=== PATIENT | male | born 1945 | race American Indian/Alaskan Native ===

== ENCOUNTER 2016-07-18 14:35 | Emergency (ER) | payer MEDICARE, OTHER ==
[2016-07-18 15:15] LABS: CHLORIDE,CL 108 mEq/L (98-106); SODIUM,NA 144 mEq/L (136-145)
[2016-07-18 15:21] VITALS: BP 126/66
--- NOTE | 2016-07-18 15:31 | EDM.PDOC ---
ED HPI GENERAL MEDICAL PROBLEM - General Chief Complaint: General Stated Complaint: HEART PALPITATIONS Time Seen by Provider: 07/18/16 14:36 Source of Information: Reports: Patient, Family (DAUGHTER) History Limitations: Reports: No Limitations - History of Present Illness INITIAL COMMENTS - FREE TEXT/NARRATIVE: JOSE ALFREDO IS A 70 YO MALE WHO PRESENTS TO THE ER WITH CONCERNS OF PALPITATIONS AND MILD CHEST DISCOMFORT. STATES HE HAS BEEN DEALING WITH IT FOR AWHILE BUT THE LAST FEW DAYS IT SEEMS TO BE WORSE. ADMITS HE DOES SUFFER FROM SOME ANXIETY WELL AND THINKS THIS MAY BE THE CAUSE. STATES WHEN HE GETS THE PALPITATIONS HE GETS SHORT OF BREATH WELL. HAS A HISTORY OF [place] AND TAKES PLAVIX AND METOPROLOL DAILY. Duration: Waxing/Waning Location: Reports: Chest Improves with: Reports: None Worsens with: Reports: None Associated Symptoms: Reports: Chest Pain, Shortness of Breath. Denies: Confusion, Cough, cough w sputum, Fever/Chills, Headaches, Loss of Appetite, Nausea/Vomiting, Syncope, Weakness - Related Data Allergies Allergy/AdvReac Type Severity Reaction Status Date / Time pineapple [Pineapple] Allergy Swollen Verified 07/18/16 14:57 Tongue Home Meds: Home Meds Metoprolol Tartrate [Metoprolol Tartrate] 12.5 mg PO BID 12/24/14 [History] Clopidogrel Bisulfate [Clopidogrel] 75 mg PO DAILY 08/05/15 [History] Past Medical History HEENT History: Reports: Impaired Vision, Other (See Below) Other HEENT History: Glasses Cardiovascular History: Reports: CAD, Hypertension, NM, Stents Respiratory History: Reports: None Gastrointestinal History: Reports: GERD Genitourinary History: Reports: None Musculoskeletal History: Reports: None Neurological History: Reports: None Psychiatric History: Reports: None Endocrine/Metabolic History: Reports: Other (See Below) Other Endocrine/Metabolic History: hypoglycemic Hematologic History: Reports: None Immunologic History: Reports: None Oncologic (Cancer) History: Reports: None Dermatologic History: Reports: Urticaria, Other (See Below) Other Dermatologic History: rosacea - Infectious Disease History Infectious Disease History: Reports: None - Past Surgical History Head Surgeries/Procedures: Reports: None Social & Family History - Family History Family Medical History: Noncontributory - Tobacco Use Smoking Status *Q: Former Smoker Years of Tobacco use: 30 Used Tobacco, but Quit: Yes Month Tobacco Last Used: YEARS AGO Second Hand Smoke Exposure: No - Caffeine Use Caffeine Use: Reports: Coffee - Alcohol Use Days Per Week of Alcohol Use: 0 - Recreational Drug Use Recreational Drug Use: No Drug Use in Last 12 Months: No Recreational Drug Type: Reports: Marijuana/Hashish - Living Situation & Occupation Living situation: Reports: with Family Occupation: Employed ED ROS GENERAL - Review of Systems Review Of Systems: See Below Constitutional: Denies: Fever, Chills, Weakness, Decreased Appetite HEENT: Reports: No Symptoms Respiratory: Reports: Shortness of Breath. Denies: Wheezing, Cough, Sputum Cardiovascular: Reports: Chest Pain, Blood Pressure Problem, Palpitations. Denies: Edema, Lightheadedness, Orthopnea, Syncope GI/Abdominal: Reports: No Symptoms. Denies: Bloody Stool, Constipation, Diarrhea, Nausea, Stool Incontinence, Vomiting : Reports: Other (NOCTURIA) Musculoskeletal: Reports: No Symptoms Skin: Reports: No Symptoms Neurological: Reports: No Symptoms ED EXAM, GENERAL - Physical Exam Exam: See Below Exam Limited By: No Limitations General Appearance: Alert, No Apparent Distress Ears: Normal External Exam, Normal Canal, Normal TMs Nose: Normal Inspection, Normal Mucosa, No Blood Throat/Mouth: Normal Inspection, Normal Lips, Normal Teeth, Normal Oropharynx, Normal Voice, No Airway Compromise Head: Atraumatic, Normocephalic Neck: Normal Inspection, Supple, Non-Tender Respiratory/Chest: No Respiratory Distress, Lungs Clear, Normal Breath Sounds, No Accessory Muscle Use, Chest Non-Tender Cardiovascular: Normal Peripheral Pulses, Regular Rate, Rhythm, No Edema, No Murmur GI/Abdominal: Normal Bowel Sounds, Soft, Non-Tender, No Organomegaly, No Distention, No Mass Extremities: Normal Inspection, Non-Tender, Normal Capillary Refill Neurological: Alert, Oriented, Normal Cognition, No Motor/Sensory Deficits Psychiatric: Normal Affect, Normal Mood Skin Exam: Warm, Dry, Intact, Normal Color, No Rash EKG INTERPRETATION EKG Date: 07/18/16 Rhythm: NSR Course - Vital Signs Last Recorded V/S: Last Vital Signs Temp 98.2 F 07/18/16 14:40 Pulse 65 07/18/16 15:19 Resp 16 07/18/16 15:19 BP 126/66 07/18/16 15:19 Pulse Ox 98 07/18/16 15:19 - Orders/Labs/Meds Labs: Laboratory Tests 07/18/16 07/18/16 07/18/16 Range/Units 14:53 14:53 14:53 WBC 5.1 (5.0-10.0) 10^3/uL RBC 4.34 L (4.50-6.00) 10^6/uL Hgb 12.9 L (14.0-18.0) g/dL Hct 40.1 (40.0-54.0) % MCV 92.4 (82.0-94.0) fL MCH 29.7 (27.0-32.0) pg MCHC 32.2 L (33.0-38.0) g/dL RDW Coeff of Lesia 13.3 (11.0-15.0) % Plt Count 229 (150-400) 10^3/uL Neut % (Auto) 56.3 (35-85) % Lymph % (Auto) 27.0 (10-55) % [place] % (Auto) 10.4 (0-16) % Eos % (Auto) 5.1 H (0-5) % Baso % (Auto) 1.2 (0-3) % Neut # (Auto) 2.86 (1.80-7.00) 10^3/uL Lymph # (Auto) 1.37 (1.00-4.80) 10^3/uL [place] # (Auto) 0.53 (0.00-0.80) 10^3/uL Eos # (Auto) 0.26 (0.00-0.45) 10^3/uL Baso # (Auto) 0.06 10^3/uL PT 11.0 (9.7-12.3) SEC INR 1.02 (0.92-1.18) APTT 27.7 (24.5-30.9) SEC D-Dimer, Quantitative 0.48 (0.00-0.50) Sodium 144 (136-145) mEq/L Potassium 4.9 (3.5-5.0) mEq/L Chloride 108 H (98-106) mEq/L Carbon Dioxide 29 (21-32) mmol/L BUN 21 H (7-18) mg/dL Creatinine 0.8 (0.7-1.3) mg/dL Est Cr Clr Drug Dosing 91.25 mL/min Estimated GFR (MDRD) > 60 (>=60) mL/min Glucose 164 H D (75-99) mg/dL Calcium 8.3 L (8.4-10.1) mg/dL Lactate Dehydrogenase 161 (100-190) U/L Creatine Kinase 49 (35-232) U/L Troponin I < 0.017 (0.00-0.06) ng/mL Dkp-V-Dexenhsrxpy Pept 114 (0-1000) pg/nL - Re-Assessments/Exams Free Text/Narrative Re-Assessment/Exam: JOSE ALFREDO HAS BEEN ASYMPTOMATIC WHILE IN THE ER. HE HAD ONE EPISODE OF PALPITATIONS BUT WAS IN NSR ON MONITOR DURING SPELL. NO SIGN OF ARRHYTHMIA. WILL DISCHARGE HOME AT THIS TIME IN STABLE AND SATISFACTORY CONDITION. Departure - Departure Time of Disposition: 15:31 Disposition: Home, Self-Care 01 Condition: good Clinical Impression: Anxiety, Chest pain of uncertain etiology - Discharge Information Instructions: Palpitations Forms: ED Department Discharge Additional Instructions: 1) APPOINTMENT SCHEDULED WITH DR. CANO ON SUNDAY IN [place] AT 8:45 AM 2)ATIVAN 0.5MG - 1 TABLET TWICE A DAY FOR ANXIETY, DO NOT DRIVE WHILE TAKING 3) FOLLOW UP SOONER IF ANY QUESTIONS OR CONCERNS. 4) ALL CARDIAC TESTING WAS NEGATIVE TODAY. NO SIGN OF BLOOD CLOT, HEART ATTACK OR HEART FAILURE. - Problem List & Annotations (1) Anxiety SNOMED Code(s): 32028585 Code(s): F41.9 - ANXIETY DISORDER, UNSPECIFIED Status: Acute (2) Non-cardiac chest pain SNOMED Code(s): 507886304 Code(s): R07.89 - OTHER CHEST PAIN Status: Acute - Problem List Review Problem List Initiated/Reviewed/Updated: Yes - Assessment/Plan Plan: SEE COURSE AND ADDITIONAL INSTRUCTIONS.
== END 2016-07-18 15:40 | disposition home or self-care (01) ==
LOC: CC.ED 14:35
DX: F41.9 Anxiety disorder, unspecified (principal); R07.9 Chest pain, unspecified; I25.10 Atherosclerotic heart disease of native coronary artery without angina pectoris; I10 Essential (primary) hypertension; I25.2 Old myocardial infarction; K21.9 Gastro-esophageal reflux disease without esophagitis; Z79.899 Other long term (current) drug therapy; Z87.891 Personal history of nicotine dependence; Z91.018 Allergy to other foods
CPT/HCPCS: 36415; 80048; 82550; 83615; 83880; 84484; 85025; 85379; 85610; 85730; 93005; 93010; 99284; 99285

== ENCOUNTER → 2016-08-04 | Day surgery (SDC) | payer MEDICARE, OTHER ==
[~2016-08-04] MED LIST: Lactated Ringers 1,000 ML IV SCH; Propofol 200 MG/20 ML SDV IV ONE
[2016-08-04 10:04] VITALS: BP 134/80
--- NOTE | 2016-08-04 11:20 | OR ---
DATE OF OPERATION: 08/04/2016 PREOPERATIVE DIAGNOSIS: GASTROESOPHAGEAL REFLUX DISEASE. POSTOPERATIVE DIAGNOSIS: GASTROESOPHAGEAL REFLUX DISEASE. SURGEON: Hari Palomares MD PROCEDURE: EGD. 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 COMPLICATIONS: None. SPECIMEN: None. FINDINGS: 1. Full-length EGD. 2. Minimal spontaneous GERD seen without distal esophagitis, stricturing, ulceration, or Guerrero's changes. RECOMMENDATIONS: Ongoing medical followup with Dr. Bridges. INDICATIONS: The patient was sent because of some occasional reflux and epigastric pressure depending on position. Dr. Bridges sent him for EGD. DESCRIPTION OF PROCEDURE: The patient was prepped and draped, placed in the left lateral decubitus position. A lubricated Olympus gastroscope was inserted over a bit, advanced cricopharyngeus area and intubated in the esophagus without difficulty. Esophageal lining was benign in its entire course. The Z-line was crisp and sharp at 39 cm. There was no hernia seen. There was some spontaneous reflux, but no signs of any distal esophagitis, stricturing, ulceration, or Guerrero's changes. The Z-line was crisp and sharp without any inflammatory change. Scope was advanced into the stomach through the pylorus into the third portion of the duodenum. Duodenal bulb, second and third portion of duodenum were unremarkable. Scope was brought back into the stomach and retroflexed. The upper fundus and cardia were benign. Upon straightening, thorough evaluation of the rest of the fundus and cardia showed no signs of any polyps, mass, ulceration, or bleeding sites. There may have been some very minimal fundal gastritis more chronic in appearance. We elected not to biopsy this because the patient had not held his Plavix prior to this procedure. Air was then suctioned from the stomach. The scope was removed without complication. AKHIL/MARISABEL /[id number]
== END | disposition home or self-care (01) ==
LOC: CC.SDS 08:07
PROVIDERS: ATTEND Family Medicine
DX: K21.9 Gastro-esophageal reflux disease without esophagitis (principal)
CPT/HCPCS: 43235; J2704; J7120; 00740